=== PATIENT | male | born 1995 | race Caucasian/White ===

== ENCOUNTER 2017-03-27 19:39 | Emergency (ER) | payer BC ==
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
[2017-03-27 22:07] VITALS: BP 125/64; PULSE 73; RESP 16; TEMP 98.1; O2SAT 92
== END 2017-03-27 22:12 | disposition home or self-care (01) ==
PROC: 0HQ1XZZ Repair Face Skin, External Approach (ICD-10-PCS; principal; 2017-03-27)
DX: S01.81XA Laceration without foreign body of other part of head, initial encounter (principal); V18.2XXA Unspecified pedal cyclist injured in noncollision transport accident in nontraffic accident, initial encounter